=== PATIENT | male | born 1965 | race Two or more races ===

== ENCOUNTER 2020-11-24 14:02 | Emergency (ER) | payer SELFPAY ==
[~2020-11-24] VITALS: Ht 172.7 cm; Wt 82.0 kg
[~2020-11-24 14:02] MED LIST: ASPI81TA45 PO; CLON0.2T PO; GABA600T7 PO; HYDR25TA6 PO; INSU100V5 SQ-INSULIN; LISI-170 PO; METF10002 PO
--- NOTE | 2020-11-24 14:15 | NUR ---
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 R eye vision change and severe HTN with pain reported.
--- NOTE | 2020-11-24 14:30 | NUR ---
ASSUMED CARE OF PT. PT C/O RIGHT EYES DIFFICULT SEEING THE LAST 3 WEEKS AND THE LEFT EYES ALSO HAS DIFFICULT SEEING PRIOR TO RIGHT EYE. PT STATES HX OF DM AND HTN. PT ABLE TO STAND WITH NO OTHER DEFICITS. 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
--- NOTE | 2020-11-24 14:35 | NUR ---
PROVIDER AT BEDSIDE TO DO EYE EVALUATION.
[2020-11-24 14:50] LABS: BASOPHILS % (AUTO) 0 % (0-1); EOSINOPHILS % (AUTO) 0 % (1-7); LYMPHOCYTES % (AUTO) 28 % (22-44); MEAN CORPUSCULAR HEMOGLOBIN 31.6 pg (27.5-34.5); MEAN PLATELET VOLUME 9.8 fL (7.4-10.4); MONOCYTES % (AUTO) 5 % (2-9); NEUTROPHILS % (AUTO) 66 % (42-75); PLATELET COUNT 212 x10^3/uL (130-400); RED BLOOD COUNT 4.99 x10^6/uL (4.38-5.82); RED CELL DISTRIBUTION WIDTH 13.3 % (9.4-14.8)
[2020-11-24 14:52] LABS: ANION GAP 4 mmol/L (5-15); CALCIUM 9.9 mg/dL (8.5-10.1); CHLORIDE 106 mmol/L (98-107); CREATININE 1.06 mg/dL (0.7-1.3)
--- NOTE | 2020-11-24 14:55 | NUR ---
PT WITH TECH TO DO VISUAL ACUITY TEST.
--- NOTE | 2020-11-24 15:13 | NUR ---
PT STATES HAS A HARD LUMP ON BACK OF NECK AND HAS HAD IT FOR ABOUT 20 YEARS PAIN IN THE BACK OF THE NECK. WHEN PT HAD INSURANCE THE DOCTOR SAID NOT TO WORRY ABOUT IT. PT STATES 9/10 PAIN AND HE HAS TO SLEEP SITTING UP BECAUSE OF THE PAIN.
--- NOTE | 2020-11-24 15:18 | NUR ---
PROVIDER NOTIFIED REGARDING LUMP ON BACK OF NECK.
[2020-11-24] MEDS ORDERED: LISINOPRIL 10 MG TABLET ONE (15:51)
[2020-11-24] MEDS ORDERED: LISINOPRIL 10 MG TABLET PO ONE (16:00)
[2020-11-24 16:11] VITALS: BP 181/97
--- NOTE | 2020-11-24 16:13 | NUR ---
Patient given discharge instructions and they have confirmed that they understand the instructions. Patient ambulatory with steady gait. No questions at time of discharge.
== END 2020-11-24 16:25 | disposition home or self-care (01) ==
LOC: ED 14:32
DX: H54.61 Unqualified visual loss, right eye, normal vision left eye (principal); I10 Essential (primary) hypertension; E11.9 Type 2 diabetes mellitus without complications; R94.31 Abnormal electrocardiogram [ECG] [EKG]
CPT/HCPCS: 36415; 80048; 82040; 85025; 93005; 99284